=== PATIENT | female | born 1965 | race Caucasian/White ===

== ENCOUNTER 2016-10-27 01:52 | Day surgery (SDC) | payer OTHER ==
[~2016-10-27] VITALS: Ht 172.7 cm; Wt 83.9 kg
[~2016-10-27 01:52] MED LIST: PANT40TA3 PO; TOPI-31 PO; TOPI100T32 PO; TRAZ-118 PO; VENL225T3 PO
[2016-10-27] MEDS ORDERED: Propofol 10,000 mCg/mL 20 mL Inj ONE (01:53)
[2016-10-27] MEDS ORDERED: Lactated Ringer's 1,000 ML IV ONE (06:00)
[2016-10-27 15:38] VITALS: BP 116/78; PULSE 61; RESP 14; O2SAT 98
--- NOTE | 2016-10-27 16:22 | PCM.HPANE ---
Patient Data Date of Service: October 27, 2016 Surgeon Admitting Provider: Attending Provider:Ky Juarez MD Primary Care Physician:Curry Walsh MD Other Provider:Mj Saez Anesthesia Reason for Visit GERD Ht/WT & BMI Height (Feet): 5 Height (Inches): 8 Weight (Kilograms): 83.91 Body Mass Index 28.00 Allergies Coded Allergies: No Known Drug Allergies (Verified Allergy, Unknown, 10/26/16) Past Anesthesia History Anesthesia History: Denies:: Abnormal Airway, Anesthesia Reactions, Difficult Intubation, Fam Anesthesia Reaction, Fam Malignant Hypertherm, Malignant Hyperthermia Diabetes History Hx Diabetes?: No MRSA MRSA: No Medications Hypertension Medication: No Home Meds Incl Beta Purnima: No Reported Medications Venlafaxine ER 225 Mg Tab.er.20002 Mg PO DAILY Ref 0 10/26/16 Trazodone 100 Mg [id number] Mg PO HS Ref 0 10/26/16 Topiramate (Topamax)100 Mg [id number] Mg PO BID Ref 0 10/26/[address] 40 Mg Tablet.dr40 Mg PO DAILY Ref 0 10/26/16 Discontinued Reported Medications Topiramate 100 Mg [id number] Mg PO BID Ref 0 10/26/16 History History of ENT Problems?: Yes HEENT History: Positive for:: Dysphagia Denies:: Abnormal Airway Difficult Intubation Hearing Problem Denture Type: Full- Upper Teeth Condition: Broken Teeth Missing Teeth Hx of Heart Problems?: No Cardiovascular History: Denies:: AICD Abdominal Aortic Aneurism Atrial Fibrillation Cardiac Surgery Chest Pain Congestive Heart Failure Coronary Artery Disease Edema Heart Murmur Hypertension Irregular Heartbeat Pacemaker Peripheral Vascular Rheumatic Fever Thrombophlebitis Valvular Heart Disease Hx of Respiratory Problem?: No Respiratory History: Denies:: Asthma COPD Chest Surgery Cough Dyspnea Emphysema Hemoptysis Oxygen Administration Pneumonia Pulmonary Embolism Tuberculosis Use of C-PAP Machine Use of Inhalers / NEBS Hx Neurologic Problems?: Yes Neurological History: Positive for:: Headaches Denies:: CVA Hx of GI Problems?: Yes Hx of Problems?: No HX of Peritoneal Dialysis: No Female Hx: Denies:: Currently Endometriosis Pelvic Inflammatory Problems with Breasts? Hx Musculoskeletal Problems?: No Musculoskeletal History: Denies:: Fibromyalgia Joint Replacement Hx of Psycho/Social Problems?: Yes Psycho Social History: Positive for:: Anxiety Hx Depression Hx Surgeries?: Yes (HYSTERECTOMY) Hx Any Other Health Problems?: Yes Hx Diabetes: No Hx Alcohol Use: NoHave You Smoked inLast 12 mo: Yes Stop/Bang Treated for Sleep Apnea?: No Do You Have a CPAP Machine?: No S-Snoring: Do You Snore Loudly: Yes T-Tired: feel tired, fatigued: No O-Obsered: Observed not breath: No P-Blood Pressure: treated: No B- Body Mass Index > 35 kg/m2: No A- Age over 50: No N- Neck Large Circumference: No G- Gender Male: No GUERO Total Score: 1 Risk Assessment Category Category 1A: Patient has history of documented sleep apnea, and HAS NOT received any narcotic, sedative or anesthesia administration during this stay. Category 1B: Patient has history of documented sleep apnea, and HAS received any narcotic , sedative or anesthesia administration during this stay Category 2: Patient has SUSPECTED Obstructive Sleep Apnea, and HAS received any narcotic , sedative or anesthesia administration during this stay. Category 3: Patient has SUSPECTED Obstructive Sleep Apnea and HAS NOT received narcotic, sedative or anesthesia administration during this stay. Category 4: Outpatient in Procedural Areas with known sleep apnea or who screen positive for High Risk via the STOP/BANG questionnaire. Exam Exam Vital Signs Vital Signs Date Time Temp Pulse Resp B/P Pulse Ox O2 Delivery O2 Flow Rate FiO2 10/27/16 15:38 61 14 116/78 98 Room Air General Appearance: Oriented X3 HEENT/AIRWAY: MP 1 Lungs: Clear to Auscultation Heart: Exam Unremarkable Plan Impression Patient chart reviewed, patient interviewed and anesthestic plan with risks, benefits, and alternatives discussed, and informed consent obtained. NPO per Anesth. Guidelines: Yes ASA Physical Status: ASA2 Mod Systemic Disease Anesthetic Plan: MAC Bene/Risks/Altern/Consents: Yes HP Complete Prior to Induction: Yes Jas Cohen MD October 27, 2016 16:22
[2016-10-27] MEDS ORDERED: Lactated Ringer's 1,000 ML IV SCH (16:25)
[2016-10-27] MEDS ORDERED: Ondansetron 2 mg/mL 2 mL Inj IVPUSH PRN (16:25)
[2016-10-27] MEDS ORDERED: MetoCLOpramide 5 mg/mL 2 mL Inj IVPUSH PRN (16:25)
[2016-10-27 16:30] VITALS: BP 109/72; PULSE 58; RESP 16; O2SAT 96
[2016-10-27 16:40] VITALS: BP 113/80; PULSE 66; RESP 14; O2SAT 98
[2016-10-27 16:48] VITALS: BP 120/83; PULSE 55; RESP 16; O2SAT 96
--- NOTE | 2016-10-27 17:02 | PCM.ANEP1 ---
Post Anesthesia Phase 1 PACU Phase 1 Assessment Date of Service: October 27, 2016 Vital Signs Vital Signs Date Time Temp Pulse Resp B/P Pulse Ox O2 Delivery O2 Flow Rate FiO2 10/27/16 16:48 55 16 120/83 96 Room Air 10/27/16 16:40 66 14 113/80 98 Room Air 10/27/16 16:30 58 16 109/72 96 Room Air 10/27/16 15:38 61 14 116/78 98 Room Air Anesthetic Administered: MAC Level of Alertness: Awake, talking Pain: No Nausea or Vomiting: No Oxygen Delivery: Room Air Lungs: Clear to Auscultation Complications: No Follow up Care: No Jas Cohen MD October 27, 2016 17:02
--- NOTE | 2016-10-27 23:53 | ENDO ---
[address] [address] ENDOSCOPY PROCEDURE PATIENT: SHERIF HERRON : 1965 MR#: [id number] ADMIT: 10/27/2016 JOB ID: [id number] DATE OF PROCEDURE: PROCEDURE: Esophagogastroduodenoscopy. INDICATION: Gastroesophageal reflux. ANESTHESIA: Please see anesthesia report for details regarding ASA classification, Mallampati score, and medications. INSTRUMENT USED: [id number]. PROCEDURE DETAILS: After informed consent was obtained, the patient was brought into the GI suite, where she was placed on oxygen via nasal cannula and monitored with continuous pulse oximeter, telemetry, and blood pressure monitoring. A time-out was performed. Then, she was placed in the left lateral decubitus position and medications were administered for sedation. A bite block was placed. The standard EGD scope was then inserted through the bite block and advanced under direct visualization to the second portion of the duodenum without difficulty. FINDINGS: 1. Normal appearing duodenal bulb, first and second portion. 2. Normal appearing pylorus, antrum and gastric body. 3. Retroflexed views in the gastric body revealed a normal appearing cardia and fundus. A small hiatal hernia was noted. 4. The diaphragmatic hiatus was at approximately 38 cm and the squamocolumnar junction was at 35 cm. The squamocolumnar junction was regular. 5. The remainder of the esophagus otherwise appeared unremarkable. IMPRESSION: Small hiatal hernia, otherwise, normal exam to second portion of duodenum. RECOMMENDATIONS: 1. Await biopsy results. 2. Reflux precautions. 3. Continue PPI. COMPLICATIONS: None. ESTIMATED BLOOD LOSS: Less than 5 mL.
--- NOTE | 2016-11-01 13:07 | PATH ---
SURGICAL PATHOLOGY Attending Physician:Fracisco Camilo CASE STATUS: Signed Out PATIENT NAME: SHERIF HERRON PID: [id number] : 1965 DATE COLLECTED:10/27/2016 00:00 SPECIMEN: Gastric, Biopsy CLINICAL HISTORY: 1. RANDOM GASTRIC BX FINAL DIAGNOSIS: 1.STOMACH, RANDOM BIOPSIES: ANTRAL AND BODY-TYPE MUCOSA WITH NO DIAGNOSTIC ABNORMALITY. Negative for Helicobacter organisms. Negative for intestinal metaplasia. Negative for dysplasia and malignancy. ICD10 code R10.9 GROSS DESCRIPTION: The specimen is received in one formalin filled container labeled with the patient's name, sublabeled "random gastric" and consists of 4 portions of tissue which aggregate to 0.3 x 0.3 x 0.2 CM. The specimen is entirely submitted in one cassette. 10/28/2016 [facility] MICRO DESCRIPTION: See diagnosis. ICD-9 CODES: CPT CODES: 1: 07402 Electronically Signed Out Amy Madrid MD [facility] Pathology [facility] [address], [place] [address] Technical component performed at [facility], [facility] [address], [place], [address]
== END 2016-10-27 23:59 | disposition home or self-care (01) ==
LOC: END 01:52
PROVIDERS: ATTEND Internal Medicine Gastroenterology
DX: K44.9 Diaphragmatic hernia without obstruction or gangrene (principal); K21.9 Gastro-esophageal reflux disease without esophagitis; R13.10 Dysphagia, unspecified; M54.5 Low back pain; F41.8 Other specified anxiety disorders; F17.210 Nicotine dependence, cigarettes, uncomplicated; F15.21 Other stimulant dependence, in remission; Z90.710 Acquired absence of both cervix and uterus
CPT/HCPCS: 43239; 88305; J7120